=== PATIENT | male | born 1950 ===

== ENCOUNTER 2017-03-17 07:50 | Day surgery (SDC) | payer MEDICARE ==
[2017-03-17 08:43] VITALS: BMI 31.4
[2017-03-17] MEDS ORDERED: Propofol 10 mg/ml Inj (20 ML) ONE ×2 (10:07→10:21)
--- NOTE | 2017-03-17 10:07 | CP.SDSHP ---
Same Day Surgery H & P - History Proposed Procedure: colonosocpy Pre-Op Diagnosis: screen, blood in stool - Previous Medical/Surgical History Cardiac: Hypertension Endocrine/Metabolic: Diabetes - Allergies Allergies: Allergies No Known Allergies Allergy (Verified 03/17/17 08:43) - Physical Exam Vital Signs: Vital Signs 03/17/17 08:48 Temperature 97.7 F Pulse Rate 63 Respiratory 16 Rate Blood Pressure 119/81 O2 Sat by Pulse 97 Oximetry Mental Status: Alert & Oriented x3 Heart: WNL Lungs: WNL GI: WNL - {Optional Preform as Required} Abdomen: WNL - Impression Impression: screen, blood in stool Pt. Evaluated Today:Candidate for Anesthesia & Procedure: Yes - Date & Time Date: 03/17/17 Time: 10:00 Short Stay Discharge - Short Stay Discharge Admitting Diagnosis/Reason for Visit: SCREENING Disposition: HOME/ ROUTINE
[2017-03-17 10:56] VITALS: TEMP 97.5
[2017-03-17 11:16] VITALS: RESP 18; O2SAT 100
[2017-03-17 11:38] VITALS: BP 118/72; PULSE 70
== END 2017-03-17 11:35 | disposition home or self-care (01) ==
LOC: C.ENDO 07:50
PROVIDERS: ATTEND Internal Medicine Gastroenterology
DX: K57.30 Diverticulosis of large intestine without perforation or abscess without bleeding (principal); K64.8 Other hemorrhoids; D12.5 Benign neoplasm of sigmoid colon
CPT/HCPCS: 45388; 82948; 88305; J2704